=== PATIENT | female | born 1955 | race Caucasian/White ===

== ENCOUNTER → 2017-11-05 | Outpatient (CLI) | payer BC, OTHER ==
[~2017-11-05] MED LIST: ACYC800T99 PO; DIPH-740 PO; LOR5 PO; OXYC10TA67 PO
--- NOTE | 2017-11-06 09:07 | RADIOLOGY IMAGING REPORT ---
FACILITY: [facility] [place] PATIENT NAME: THEO BUNDY : [id number] MR: [id number] V: [id number] EXAM DATE: [id number] ORDERING PHYSICIAN: ORIN SALMERON TECHNOLOGIST: Gemini Sanchez PROCEDURE:BILATERAL DIGITAL SCREENING MAMMOGRAM WITH CAD ASSISTED INTERPRETATION & 3D TOMOSYNTHESIS COMPARISON:Prior mammograms 09/20/15, 10/18/13, 10/26/12, 10/23/11. INDICATIONS:SCREENING FINDINGS: Mildly heterogeneous fibroglandular tissue is seen throughout the breasts. The parenchymal pattern has remained stable allowing for difference in mammographic technique & patient positioning. There is no evidence of malignant appearing mass, malignant appearing calcifications or other secondary sign of malignancy in either breast. DIAGNOSTIC CATEGORY 1--NEGATIVE. RECOMMENDATIONS: ROUTINE MAMMOGRAM AND CLINICAL EVALUATION. IMPRESSION: BIRADS 1: Negative. No significant abnormality is seen. Dictated by: Ramona Mooney M.D. on 11/05/2017 at 10:39 Transcribed by: DARREL on 11/05/2017 at 10:42 Approved by: Ramona Mooney M.D. on 11/06/2017 at 9:06 [facility]
== END ==
LOC: MAMO 00:27
PROVIDERS: ATTEND Obstetrics & Gynecology
DX: Z12.31 Encounter for screening mammogram for malignant neoplasm of breast (principal)
CPT/HCPCS: 77063; 77067